=== PATIENT | female | born 1990 | race Caucasian/White ===

== ENCOUNTER → 2020-09-03 | Outpatient (CLI) | payer SELFPAY | END | disposition home or self-care (01) | LOC: LABSPEC 17:26 | PROVIDERS: Referring Provider Obstetrics & Gynecology; Visit Provider Obstetrics & Gynecology | DX: Z03.818 Encounter for observation for suspected exposure to other biological agents ruled out (principal) | CPT/HCPCS: 87635; C9803; U0003 ==

== ENCOUNTER 2020-09-08 05:03 | Inpatient (IN) | payer SELFPAY ==
[2020-09-08] VITALS (20 sets, daily range): BP systolic 105–124; BP diastolic 40–86; PULSE 70–99; RESP 12–18; TEMP 36.1–36.9; O2SAT 97–100; BMI 28.6
[2020-09-08] MEDS: Lactated Ringers 1,000 ML 999 ML IV (05:20)
[2020-09-08 05:38] LABS: Absolute Lymphocyte Count 1.93 X10^3/uL (0.83-4.51); Absolute Neutrophil Count 5.9 X10^3/uL (2.0-7.7); Basophil# 0.05 X10^3/uL; Basophil% 0.6 % (0-1); Eosinophil# 0.16 X10^3/uL; Eosinophils% 1.8 % (0-5); Hematocrit 32.5 % (37-47); Hemoglobin 10.7 g/dL (12.0-15.0); Lymphocyte # 1.93 X10^3/ul (4.0); Lymphocyte % 22.3 % (19-41); Mean Corp Hgb Conc 32.9 g/dL (32-36); Mean Corpuscular Hgb 28.7 pg (27.0-32.0); Mean Corpuscular Volume 87.1 fL (81-99); Mean Platelet Vol. 10.1 fl (6.2-12.0); Monocyte# 0.48 X10^3/uL; Monocyte% 5.5 % (0-10); NRBC Flagged by Analyzer 0 % (0-5); Neutrophil % 68.2 % (47-70); Platelet Count 310 K/mm3 (150-450); RBC Distribution Width CV 13.2 % (11.6-14.6); RBC Distribution Width SD 40.3 fl (35.1-43.9); Red Blood Count 3.73 M/mm3 (4.2-5.4); White Blood Count 8.7 K/mm3 (4.4-11.0)
[2020-09-08] MEDS: Acetaminophen 500 MG Tablet 1000 MG PO ×4 (06:02→23:39)
[2020-09-08] MEDS: Lactated Ringers 1,000 ML 150 ML IV (06:18)
[2020-09-08] MEDS: Sodium Citrate/Citric Acid 30 ML UDC PO (07:15)
--- NOTE | 2020-09-08 07:38 | PCM.HP.OB ---
History Date of Admission: 09/08/20 Final RADHA: 09/26/20 Final RADHA Source: US <20 weeks Gestational age: 37 Weeks and 3 Days History of this : This is a 30 year-old, G [id number] @ 37 3/7 weeks for primary c/s for Breech/breech mon/di twins. uncomplicated to date Allergies No Known Allergies Allergy (Verified 09/08/20 05:18) Home Medications: Home Medications Pnv No.95/Ferrous Fum/Folic AC [ Formula Tablet] 1 tab PO DAILY 09/08/20 Smoking Status: Never smoker Alcohol: None Number of Fetus(es): 1 History Past Pregnancies: Past Pregnancies Delivery Date Name GA/ Weeks Outcome Route Wt Sex Labor Length Anesthesia Delivery Location Provider FOB Expected Delivery Method: Primary Section Review of Systems Constitutional: Denies: Chills, Fever Eyes: Denies: Blurred vision Cardiovascular: Denies: Chest Pain, Edema Respiratory: Denies: Cough Gastrointestinal: Denies: Diarrhea Genitourinary: Denies: Dysuria Skin: Denies: Rash Neurological: Denies: Blurred vision, Slurred speech Hematologic/ Lymphatic: Denies: Easy Bruising, Easy Bleeding, Hx of blood clot Physical Exam Vitals: Vital Signs Temp Pulse Resp BP Pulse Ox 97.8 F 99 18 117/78 100 09/08/20 07:31 09/08/20 07:31 09/08/20 07:31 09/08/20 07:31 09/08/20 07:31 General: Alert, Cooperative Cardiovascular: Regular rate Lungs: Normal air movement Abdomen: Soft, Non Tender, Non-Distended, Gravid, Appropriate for Gestational Age Neurological: Neuro grossly intact LICENSED PRACTICAL VOCATIONAL NURSE: Normal external genitalia Estimated gestational size: Appropriate for gestational size Assessment/Plan This is a 30 year-old, @ 37 3/7 weeks for primary c/s due to breech/breech mono/di twin gestation.
[2020-09-08] MEDS: Cefazolin 2 GM in 0.9% Normal Saline 100 ML IV (07:49)
--- NOTE | 2020-09-08 08:32 | OP.PCM_ITS ---
Delivery Classification: Scheduled Final RADHA: 09/26/20 Gestational age: 37 Weeks and 3 Days child care aide: Leila Smith Type of Anesthesia:: Spinal Special Medications: duramorph Implants Used: none Date of Procedure: 09/08/20 Pre-Operative Diagnosis: mono/di twins, breech/breech Post-Operative Diagnosis: same Description of Procedure: The patient was taken to the operating room. She was prepped and draped in the dorsal supine position with a leftward tilt. A Pfannenstiel skin incision was made approximately 2 cm above the symphysis pubis and carried through to underlying layer fascia with the scalpel. The fascia was incised incised in the midline and extended laterally with dissection. The fascia was dissected off the rectus muscles superiorly with some sharp and mostly blunt dissection. The rectus muscles were in the midline and the peritoneum was entered bluntly. The peritoneal incision was stretched and the bladder blade was placed. The uterine incision was made in a low transverse fashion with the scalpel and extended superiorly and inferiorly with blunt dissection. The amniotic membranes were ruptured bluntly and clear amniotic fluid returned for baby A. The legs were swept out individually, the baby was delivered to the chest a towel was placed underneath, the baby was back up and the arms were swept out individually and the head was delivered with very gentle fundal pressure and traction without difficulty. The mouth and nares were bulb suctioned. The cord was clamped and cut as the was stimulated. Cord clamping was not delayed as the baby was not immediately crying but by 20 seconds of life was crying. Th e infant was handed off to the waiting nursing staff. Baby B was breech, with gentle manipulation I was able to convert it to vertex and bring the head down to the incision. Amniotic membranes for baby B were ruptured with clear fluid. The head was delivered the remainder the infant was delivered in the standard fashion with gentle traction. The mouth and nares were bulb suctioned as the cord was clamped and cut after approximately 30 seconds. The placenta was delivered with fundal massage and gentle traction in the standard fashion. The uterus was exteriorized and cleared of all clots and debris. The cervix was dilated with a ring forcep. The uterine incision was closed with #1 Vicryl in a running locked fashion. A second layer of the same suture was used in an imbricating fashion. The incision was examined and was found to be hemostatic. The uterus was placed back into the peritoneal cavity and hemostasis was again confirmed. The rectus muscles were examined and any bleeding was Bovie cauterized. The parietal peritoneum and rectus muscles were closed en bloc with an 0 Vicryl running suture. The surgical teams outer gloves were then changed. The rectus fascia was examined and any bleeding was Bovie cauterized and the rectus fascia was closed with #1 PDS suture in a running standard fashion. The subcutaneous tissue was examining and any bleeding was Bovie cauterized. The subcutaneous tissue was reapproximated with 3-0 Vicryl suture. The skin was closed in a subcuticular fashion by the [employer] with me present in the labor and delivery suite. I performed the remainder of the procedure with assistance. All sponge, lap, and needle counts were correct. The patient was taken to her room for recovery in a stable condition. Amniotic Membrane Rupture Type: Artificial Amniotic Fluid Description: Clear Placenta Disposition: [facility] Drain: [place] to straight drain Fluids Replaced: 1000 mL Cord Entanglement: None Cord Vessel Description: 3 Vessels Esitmated Blood Loss (ml): 800 Gender: Male - breech, Koltin, Shawn breech Delayed cord clamping: No Antibiotic Given: Ancef 2 grams IV x1 - Admit VTE Documentation VTE Present on Admission: No VTE Mechan Device Prophylaxis: SCD's VTE Pharm Prophylaxis ordered?: No Reason prophylaxis not ordered:: Procedure Not Indicated Baby B - Information Amniotic Membrane Rupture Type: Artificial Presentation: Vertex - was breech but verted to vertex before AROM - Operative Information Cord Entanglement: None Cord Vessel Description: 3 Vessels Infant B gender: Male - Bobby
[2020-09-08] MEDS: Oxytocin 30 units/NS 500 ml 30 UNITS/500 ML IV.SOLN 167 UNITS IV (09:00)
[2020-09-08] MEDS: Lactated Ringers 1,000 ML 100 ML IV (12:23)
[2020-09-08] MEDS: Ketorolac 30 MG/ML Syringe IV ×2 (14:25→20:44)
[2020-09-08] MEDS: 0.9% Saline Lock 10 ML Syringe IV (20:44)
[2020-09-09] MEDS: 0.9% Saline Lock 10 ML Syringe IV ×2 (03:20→08:20)
[2020-09-09] MEDS: Ketorolac 30 MG/ML Syringe IV ×2 (03:20→08:20)
[2020-09-09 04:47] VITALS: BP 126/78; PULSE 87; RESP 16; TEMP 37.1; O2SAT 99
[2020-09-09 05:07] LABS: Hematocrit 28.3 % (37-47); Hemoglobin 8.9 g/dL (12.0-15.0); Mean Corp Hgb Conc 31.4 g/dL (32-36); Mean Corpuscular Hgb 27.1 pg (27.0-32.0); Mean Platelet Vol. 9.9 fl (6.2-12.0); Platelet Count 288 K/mm3 (150-450); RBC Distribution Width CV 13.1 % (11.6-14.6); RBC Distribution Width SD 39.9 fl (35.1-43.9); Red Blood Count 3.29 M/mm3 (4.2-5.4); White Blood Count 11.8 K/mm3 (4.4-11.0)
[2020-09-09] MEDS: Acetaminophen 500 MG Tablet 1000 MG PO ×2 (06:27→13:13)
[2020-09-09 08:00] VITALS: BP 120/76; PULSE 92; RESP 18; TEMP 36.8
--- NOTE | 2020-09-09 09:48 | PCM.PN.OB ---
Subjective: pt seen at bedside, doing well. pt reports good pain control. lochia mild. Breast feeding twins well. voiding without difficulty. - Physical Exam Vitals/I&O's: Vital Signs Temp Pulse Resp BP Pulse Ox 98.8 F 87 16 126/78 H 99 09/09/20 04:47 09/09/20 04:47 09/09/20 04:47 09/09/20 04:47 09/09/20 04:47 Oxygen Delivery Method Room Air Weight: 78.075 kg Body Mass Index (BMI) 28.6 Intake and Output for Last 24 Hours 09/07/20 09/08/20 09/09/20 23:59 23:59 23:59 Intake Total 2526.67 / 2526.67 Output Total 1000 / 1000 Balance 2526.67 / 2526.67 -1000 / -1000 General: Alert, Oriented x3 Abdomen: Soft, Non-Distended, - - dressing dry and intact Extremities: No Calf Tenderness Laboratory Results 09/09/20 05:00: WBC 11.8 H, RBC 3.29 L, Hgb 8.9 L, Hct 28.3 L, MCV 86.0, MCH 27.1, MCHC 31.4 L, RDW Std Deviation 39.9, RDW Coeff of Nirmala 13.1, Plt Count 288, MPV 9.9 Current Medications Acetaminophen (Acetaminophen 500 Mg Tablet) 1,000 mg PO Q6 [facility] Last Admin: 09/09/20 06:27 Dose: 1,000 mg Documented by: Bisacodyl (Bisacodyl 10 Mg Suppository) 10 mg RECTAL UD PRN PRN Reason: If no BM Hydrocortisone (Hydrocortisone 2.5% Crm) 1 applic TOPICAL TID PRN PRN; Protocol PRN Reason: Discomfort Methylergonovine Maleate (Methylergonovine 0.2 Mg/Ml Ampul) 0.2 mg IM X1 PRN PRN Reason: Uterine Atony Naproxen (Naproxen 250 Mg Tablet) 500 mg PO Q8 [facility] Ondansetron HCl (Ondansetron 4 Mg/2 Ml Vial) 4 mg IV Q4H PRN PRN PRN Reason: Nausea Oxycodone HCl (Oxycodone 5 Mg Tablet) 5 - 10 mg PO Q4H PRN PRN PRN Reason: Pain Score 4-10 Prochlorperazine Edisylate (Prochlorperazine 10 Mg/2 Ml Vial) 10 mg IV Q6H PRN PRN PRN Reason: NAUSEA Senna/Docusate Sodium (Senna/Docusate Sodium 1 Tablet) 0 tablet PO DAILY [facility] Last Admin: 09/08/20 10:01 Dose: Not Given Documented by: Simethicone (Simethicone 80 Mg Tablet) 80 mg PO PCHS PRN PRN Reason: Indigestion/stomach pain Sodium Chloride (0.9% Saline Lock 10 Ml Syringe) 5 - 15 ml IV UD PRN PRN Reason: SALINE FLUSH Last Admin: 09/09/20 08:20 Dose: 10 ml Documented by: Medical Necessity - Tobacco Use Smoking Status: Never smoker Assessment/Plan POD#1, s/p C/s twins routine care pain mgmt ambulation
[2020-09-09] MEDS: Naproxen 250 MG Tablet 500 MG PO (13:13)
[2020-09-09] MEDS: Senna/Docusate Sodium 1 Tablet PO (13:14)
--- NOTE | 2020-09-09 16:44 | DCINST_ITS ---
Discharge Diet: No Restrictions Discharge Activity: Return to Normal Activity, May Not Drive - for 2 weeks, May not drive while taking narcotic pain medications., May Shower, May Take a Tub Bath - in 7 days. May resume sexual activity in: 4-6 weeks Lifting Restrictions: 20 pounds Additional Activity Instructions:: Nothing in the vagina for 4-6 weeks. You may return to work/school in 6 weeks. Call your doctor if your incision/area has: Continuous Slow Oozing, Sudden Increased Bleeding, Increased Pain/ Swelling, Increased Redness, Foul Smelling Discharge Call your doctor if you observe: Fever of 101 or Higher, Using more than one pad per hour - for 2 hours Suture Line Care: Avoid Pulling/Pushing, Avoid Pinching/Bending Cleanse incision/area with: Keep Dressing Clean & Dry Additional Instructions: If you experience any of the following, contact your healthcare provider. * Bleeding that soaks a pad every hour for 2 hours * Fever 100.4 or higher * Unrelieved incision or abdominal pain * Swelling, redness, discharge or bleeding from your incision or episiotomy site * Your incision begins to separate * Problems urinating (including inability to urinate or burning while urinating). * Visual changes * Severe headache * Flu-like symptoms * Pain or redness in one of both of your breasts * Pain, warmth, tenderness or swelling in your legs, especially the calf area * Frequent nausea and vomiting * Symptoms of depression or anxiety If you experience any of the following, call 911 or go to the nearest Emergency Room. * Chest pain * Problems breathing * Seizure activity * Partial or complete paralysis of a body part, slurred speech, weakness or drooping of the face, or a sudden inability to walk or hold your balance Allergies/Adverse Reactions: Allergies No Known Allergies Allergy (Verified 09/08/20 05:18) Medications to take at Discharge Pnv No.95/Ferrous Fum/Folic AC [ Formula Tablet] 1 tab PO DAILY 09/08/20 Acetaminophen [Tylenol] 1,000 mg PO Q6 #60 tab 09/09/20 Naproxen [Naprosyn] 500 mg PO Q8 #60 tab 09/09/20 Oxycodone [Oxyir] 5 mg PO Q6H PRN PRN 7 Days #10 tablet 09/09/20 Senna/Docusate Sodium [Senokot-S] 1 tab PO DAILY #30 tab 09/09/20 SimETHICONE [Mylicon] 80 mg PO PCHS PRN #30 tab 09/09/20 The following prescriptions were given: SimETHICONE [Mylicon] 80 mg PO PCHS PRN #30 tab PRN Reason: Indigestion/stomach pain Transmission Status: Pending to [facility] Naproxen [Naprosyn] 500 mg PO Q8 #60 tab Transmission Status: Pending to [facility] Oxycodone [Oxyir] 5 mg PO Q6H PRN PRN 7 Days #10 tablet PRN Reason: Pain Score 4-10 Transmission Status: Sent to [facility] Senna/Docusate Sodium [Senokot-S] 1 tab PO DAILY #30 tab Transmission Status: Pending to [facility] Acetaminophen [Tylenol] 1,000 mg PO Q6 #60 tab Transmission Status: Pending to [facility] Follow-Up: Call to make an appointment with your doctor for an incision check in 1-2 weeks. You will also need a 6 week post- follow up appointment. Test results from this visit will be discussed in further detail at your follow- up appointment, if applicable. Please Follow Up With: Adalgisa Arias MD - Call to make an appointment for an incision check in 1-2 [phone] When: You will need a post- check in 6 weeks. Primary Care Physician: Bibiana Sheriff MD [Primary Care Provider] -
--- NOTE | 2020-09-09 16:45 | PCM.DC.BLA ---
Discharge Summary Date of Admission: 09/08/20 Date of Discharge: 09/09/20 Summary: pt underwent primary Low transverse c/s at 37.3 weeks for [place]/DI twins (BREECH/BREECH) by dr. Adalgisa haley. pt had an uncomplicated post op course and wanted to be discharged on POD#1. Pt stable at time of discharge. - Physical Exam Vitals/I&O's: Vital Signs Temp Pulse Resp BP Pulse Ox 98.2 F 92 18 120/76 99 09/09/20 08:00 09/09/20 08:00 09/09/20 08:00 09/09/20 08:00 09/09/20 04:47 Oxygen Delivery Method Room Air Weight: 78.075 kg Body Mass Index (BMI) 28.6 Intake and Output for Last 24 Hours 09/07/20 09/08/20 09/09/20 23:59 23:59 23:59 Intake Total 2526.67 / 2526.67 Output Total 1000 / 1000 Balance 2526.67 / 2526.67 -1000 / -1000 Laboratory Results 09/09/20 05:00: WBC 11.8 H, RBC 3.29 L, Hgb 8.9 L, Hct 28.3 L, MCV 86.0, MCH 27.1, MCHC 31.4 L, RDW Std Deviation 39.9, RDW Coeff of Nirmala 13.1, Plt Count 288, MPV 9.9 Current Medications Acetaminophen (Acetaminophen 500 Mg Tablet) 1,000 mg PO Q6 [facility] Last Admin: 09/09/20 13:13 Dose: 1,000 mg Documented by: Bisacodyl (Bisacodyl 10 Mg Suppository) 10 mg RECTAL UD PRN PRN Reason: If no BM Hydrocortisone (Hydrocortisone 2.5% Crm) 1 applic TOPICAL TID PRN PRN; Protocol PRN Reason: Discomfort Methylergonovine Maleate (Methylergonovine 0.2 Mg/Ml Ampul) 0.2 mg IM X1 PRN PRN Reason: Uterine Atony Naproxen (Naproxen 250 Mg Tablet) 500 mg PO Q8 [facility] Last Admin: 09/09/20 13:13 Dose: 500 mg Documented by: Ondansetron HCl (Ondansetron 4 Mg/2 Ml Vial) 4 mg IV Q4H PRN PRN PRN Reason: Nausea Oxycodone HCl (Oxycodone 5 Mg Tablet) 5 - 10 mg PO Q4H PRN PRN PRN Reason: Pain Score 4-10 Prochlorperazine Edisylate (Prochlorperazine 10 Mg/2 Ml Vial) 10 mg IV Q6H PRN PRN PRN Reason: NAUSEA Senna/Docusate Sodium (Senna/Docusate Sodium 1 Tablet) 0 tablet PO DAILY [facility] Last Admin: 09/09/20 13:14 Dose: 1 tablet Documented by: Simethicone (Simethicone 80 Mg Tablet) 80 mg PO PCHS PRN PRN Reason: Indigestion/stomach pain Sodium Chloride (0.9% Saline Lock 10 Ml Syringe) 5 - 15 ml IV UD PRN PRN Reason: SALINE FLUSH Last Admin: 09/09/20 08:20 Dose: 10 ml Documented by:
== END 2020-09-09 18:35 | disposition home or self-care (01) | DRG 788 ==
PROVIDERS: Obstetrics & Gynecology; Admitting Provider Obstetrics & Gynecology; Visit Provider Obstetrics & Gynecology
PROC: 10D00Z1 Extraction of Products of Conception, Low, Open Approach (ICD-10-PCS; CPT 59514; principal; 2020-09-08 07:15)
DX: O32.1XX1 Maternal care for breech presentation, fetus 1 (principal); O32.1XX2 Maternal care for breech presentation, fetus 2; O30.033 Twin pregnancy, monochorionic/diamniotic, third trimester; Z3A.37 37 weeks gestation of pregnancy; Z37.2 Twins, both liveborn
CPT/HCPCS: 85025; 85027; 86850; 86900; 86901; 99218; J7120; A4216; G0378